=== PATIENT | female | born 1970 | race Caucasian/White ===

== ENCOUNTER 2021-12-10 00:08 | Day surgery (SDC) | payer BC, SELFPAY ==
[2021-11-28 15:07] VITALS: BMI 35.6
[2021-12-10 08:15] VITALS: BP 145/94; PULSE 70; RESP 18; TEMP 36.2; O2SAT 99
[2021-12-10] MEDS: LACTATED RINGERS 1,000 ML 150 ML IV CONT (08:18)
--- NOTE | 2021-12-10 08:35 | WPDANESEPPF ---
Anes - Initial Pre Proc Eval Procedure: Operation Date: 12/10/21 09:00 Proposed Procedures p Screening Colonoscopy - Isai Tom MD Date/Time: 12/10/21 08:35 Surgeon: Isai Tom MD Pre Op Diagnosis: neoplasm screening Patient Data Age: 51 Gender: F Height: 1.68 m Weight: 104.1 kg Last Vital Signs Temp 36.2 C L 12/10/21 08:15 Pulse 70 12/10/21 08:15 Resp 18 12/10/21 08:15 BP 145/94 H 12/10/21 08:15 Pulse Ox 99 12/10/21 08:15 Allergies Allergy/AdvReac Type Severity Reaction Status Date / Time aspirin Allergy Unknown hives Verified 12/10/21 08:13 erythromycin base Allergy Unknown Nausea Verified 12/10/21 08:13 ethinyl estradiol Allergy Unknown Unknown Verified 12/10/21 08:13 [Femhrt 1/5] ferrous fumarate Allergy Unknown unknown Verified 12/10/21 08:13 [Loestrin 24 Fe] morphine Allergy Unknown Unknown Verified 12/10/21 08:13 norethindrone Allergy Unknown unknown Verified 12/10/21 08:13 norethindrone acetate Allergy Unknown Unknown Verified 12/10/21 08:13 [Femhrt 1/5] Home Medications Medication Instructions Recorded Confirmed Type eletriptan 40 mg tablet 40 mg PO ONCE PRN #27 tablet 11/05/19 12/10/21 Rx escitalopram oxalate 20 mg tablet See Rx Instructions .ROUTE 12/05/20 12/10/21 Rx .COMPLEX #90 tablet atorvastatin 10 mg tablet See Rx Instructions .ROUTE 04/24/21 12/10/21 Rx .COMPLEX #90 tablet montelukast 10 mg tablet See Rx Instructions .ROUTE 10/08/21 12/10/21 Rx .COMPLEX #90 tablet Patient hx anesthesia problems: none Family hx anesthesia problems: none Results Review: All pre-operative results and documents have been reviewed as part of the pre-operative evaluation. [facility] Past Medical History Medical History Basal cell carcinoma, face Migraine aura, persistent, intractable Surgical History Surgical History (Updated 12/10/21 @ 08:35 by Eligio Soliman MD) History of section History of cholecystectomy Family History Family History Grandparent Family history of osteoporosis Family history of cardiovascular disease Family history of Alzheimer's disease Family history of congestive heart failure Mother Family history of mental disorder Depression Cerebrovascular accident Family history of arthritis Sibling Family history of mental disorder Depression Asthma Family history of alcoholism Father Depression Hypertension Family history of chronic obstructive pulmonary disease Family history of hearing loss Other Family history of migraine headaches Social History Social History Smoking status: Never smoker Alcohol intake: current Substance use: never Substance use type: does not use Living arrangements: with family Spiritual care concerns: No Anes - Eval Final PreProcedure Day of Procedure 12/10/21 08:35 Patient weight: obese Heart: regular rate and rhythm Lungs: clear to auscultation Airway: Mallampati scale class 1 Neurological: alert and oriented ASA classification: III Emergent: no Anesthetic plan: proceed Anesthesia type and monitoring: general GIVS and standard monitoring Results Review: All pre-operative results and documents have been reviewed as part of the pre-operative evaluation. Informed Consent: The patient's anesthetic plan and its attendant risks and benefits were discussed with the patient/family/POA. Questions were solicited and answers provided to the satisfaction of the patient/family/POA.
--- NOTE | 2021-12-10 08:55 | PM.HPGS ---
History of Present Illness History of Present Illness Consent: Risks, benefits, and alternatives have been discussed and questions answered. Patient agrees to proceed with procedure. Chief complaint: neoplasm screening Narrative: Mariela Colin is a 51 year old female here for first screening colonoscopy Review of Systems Constitutional: Constitutional: Denies headache(s) and Denies weakness Eyes: Eyes: Denies blurry vision ENT: Reports Normal hearing present, Denies headache(s) and Denies neck pain Cardiovascular: Cardiovascular: Denies chest pain and Denies dyspnea Respiratory: Respiratory: Denies dyspnea Gastrointestinal: Gastrointestinal: Reports no additional gastrointestinal complaints Genitourinary: Genitourinary: Denies dysuria Musculoskeletal: Musculoskeletal: Denies neck pain Integumentary/Breasts: Skin/Breast: Denies dry skin Neurologic: Reports Normal hearing present, Denies headache(s) and Denies weakness Psychiatric: Psychiatric: Denies anxiety Endocrine: Endocrine: Denies change in body appearance Hematologic/Lymphatic: Hematologic/Lymphatic: Denies easy bleeding Allergic/Immunologic: Allergic/Immunologic: Denies urticaria PMFSH Past Medical History Medical History (Updated 12/10/21 @ 08:56 by Isai Tom MD) Basal cell carcinoma, face Colon cancer screening Migraine aura, persistent, intractable Surgical History Surgical History (Updated 12/10/21 @ 08:35 by Eligio Soliman MD) History of section History of cholecystectomy Family History Family History Grandparent Family history of osteoporosis Family history of cardiovascular disease Family history of Alzheimer's disease Family history of congestive heart failure Mother Family history of mental disorder Depression Cerebrovascular accident Family history of arthritis Sibling Family history of mental disorder Depression Asthma Family history of alcoholism Father Depression Hypertension Family history of chronic obstructive pulmonary disease Family history of hearing loss Other Family history of migraine headaches Social History Social History Smoking status: Never smoker Alcohol intake: current Substance use: never Substance use type: does not use Living arrangements: with family Spiritual care concerns: No Meds Home Medications and Allergies Home Medications Medication Instructions Recorded Confirmed Type eletriptan 40 mg tablet 40 mg PO ONCE PRN #27 tablet 11/05/19 12/10/21 Rx escitalopram oxalate 20 mg tablet See Rx Instructions .ROUTE 12/05/20 12/10/21 Rx .COMPLEX #90 tablet atorvastatin 10 mg tablet See Rx Instructions .ROUTE 04/24/21 12/10/21 Rx .COMPLEX #90 tablet montelukast 10 mg tablet See Rx Instructions .ROUTE 10/08/21 12/10/21 Rx .COMPLEX #90 tablet Allergies Allergy/AdvReac Type Severity Reaction Status Date / Time aspirin Allergy Unknown hives Verified 12/10/21 08:13 erythromycin base Allergy Unknown Nausea Verified 12/10/21 08:13 ethinyl estradiol Allergy Unknown Unknown Verified 12/10/21 08:13 [Femhrt 1/5] ferrous fumarate Allergy Unknown unknown Verified 12/10/21 08:13 [Loestrin 24 Fe] morphine Allergy Unknown Unknown Verified 12/10/21 08:13 norethindrone Allergy Unknown unknown Verified 12/10/21 08:13 norethindrone acetate Allergy Unknown Unknown Verified 12/10/21 08:13 [Femhrt 1/5] Vital Signs Vital Signs - 24 hr 12/10/21 08:15 Temperature 97.2 F L Pulse Rate 70 Respiratory Rate 18 Blood Pressure 145/94 H Pulse Oximetry 99 Exam Const: General: comfortable and no acute distress HENMT: General nose exam: Normal nares present Eyes: General: appearance normal, both eyes and all related structures Neck: Neck: no JVD Resp: Auscultation: clear to auscultation bilaterally
[2021-12-10 09:18] VITALS: BP 124/84; PULSE 84; RESP 18; O2SAT 100
[2021-12-10 09:28] VITALS: BP 128/80; PULSE 68; RESP 20; O2SAT 100
[2021-12-10 09:38] VITALS: BP 130/87; PULSE 64; RESP 22; O2SAT 100
== END 2021-12-10 09:53 | disposition home or self-care (01) ==
PROVIDERS: PCP Family Medicine; Visit Provider Internal Medicine Gastroenterology
PROC: 0DJD8ZZ Inspection of Lower Intestinal Tract, Via Natural or Artificial Opening Endoscopic (ICD-10-PCS; CPT 45378; principal; 2021-12-10 09:00)
DX: Z12.11 Encounter for screening for malignant neoplasm of colon (principal); D12.3 Benign neoplasm of transverse colon; K64.8 Other hemorrhoids; Z85.828 Personal history of other malignant neoplasm of skin; G43.109 Migraine with aura, not intractable, without status migrainosus; Z90.49 Acquired absence of other specified parts of digestive tract; E66.9 Obesity, unspecified; Z68.37 Body mass index [BMI] 37.0-37.9, adult
CPT/HCPCS: 45385; 88305; J2704; J7120

== ENCOUNTER 2022-07-12 08:53 | Outpatient (CLI) | payer BC, SELFPAY ==
--- NOTE | ~2022-07-12 | MM_ITS ---
EXAMINATION: MM screening crista BI w kleber HISTORY: Screening TECHNIQUE: Craniocaudal and mediolateral oblique 3-D tomosynthesis images were obtained and synthetic 2-D images were generated. CAD analysis was submitted and interpreted. COMPARISON: No prior mammogram is available for comparison at this institution. BREAST PARENCHYMAL COMPOSITION: There are scattered areas of fibroglandular density. FINDINGS: There is no evidence of suspicious mass, calcification, or architectural distortion to sugg est malignancy in either breast. There has been no suspicious interval change. IMPRESSION: 1. No mammographic evidence of malignancy. 2. Recommend routine screening mammography in one year. BI-RADS Category 1: Negative Reviewed, dictated and finalized at location A.
== END 2022-07-12 08:54 | disposition home or self-care (01) ==
PROVIDERS: PCP Family Medicine; Visit Provider Family Medicine
DX: Z12.31 Encounter for screening mammogram for malignant neoplasm of breast (principal)
CPT/HCPCS: 77063; 77067

== ENCOUNTER 2023-12-02 07:14 | Outpatient (CLI) | payer BC, SELFPAY ==
--- NOTE | ~2023-12-02 | MM_ITS ---
EXAMINATION: MM screening crista BI w kleber HISTORY: Screening mammogram TECHNIQUE: Craniocaudal and mediolateral oblique 3-D tomosynthesis images were obtained and synthetic 2-D images were generated. CAD analysis was submitted and interpreted. COMPARISON: 07/12/2022 bilateral screening mammogram BREAST PARENCHYMAL COMPOSITION: There are scattered areas of fibroglandular density. FINDINGS: There is no evidence of suspicious mass, calcification, or architectural distortion to sugg est malignancy in either breast. There has been no suspicious interval change. IMPRESSION: 1. No mammographic evidence of malignancy. 2. Recommend routine screening mammography in one year. BI-RADS Category 1: Negative Reviewed, dictated and finalized at location A. PROCESSOR TECHNICIAN
== END 2023-12-02 07:15 | disposition home or self-care (01) ==
LOC: ANHIMG 07:15
PROVIDERS: PCP Family Medicine; Visit Provider Family Medicine
DX: Z12.31 Encounter for screening mammogram for malignant neoplasm of breast (principal)
CPT/HCPCS: 77063; 77067